=== PATIENT | male | born 1995 | race African-American/Black ===

== ENCOUNTER 2021-09-13 15:31 | Emergency (ER) | payer SELFPAY ==
[~2021-09-13] VITALS: Ht 185.4 cm; Wt 85.7 kg
[2021-09-13] MEDS ORDERED: SODIUM CHLORIDE 0.9% 1000ML 1,000 ML IV STA (15:54)
[2021-09-13] MEDS ORDERED: KETOROLAC TROMETHAMINE 30 MG/ML VIAL IV STA (15:54)
[2021-09-13] MEDS ORDERED: KETOROLAC TROMETHAMINE 30 MG/ML VIAL ONE (16:18)
[2021-09-13] MEDS ORDERED: SODIUM CHLORIDE 0.9% 1000ML 1,000 ML ONE (16:18)
[2021-09-13 16:46] VITALS: BP 120/70
== END 2021-09-13 16:51 | disposition home or self-care (01) ==
LOC: FSED 15:50
DX: R06.02 Shortness of breath (principal); R07.89 Other chest pain; F14.10 Cocaine abuse, uncomplicated; R94.31 Abnormal electrocardiogram [ECG] [EKG]; F17.210 Nicotine dependence, cigarettes, uncomplicated
CPT/HCPCS: 71046; 80053; 82553; 84484; 85025; 93005; 96374; 99284; J1885; J7030